=== PATIENT | male | born 1945 | race Hispanic/Latino ===

== ENCOUNTER 2017-04-15 08:38 | Emergency (ER) | payer MEDICARE ==
[~2017-04-15 08:38] MED LIST: AMIO200T44 PO; AMOX-426 PO; DILT180C63 PO; LISI-613 PO; METO50 PO
[2017-04-15] MEDS ORDERED: SODIUM CHLORIDE 0.9% 50 ML IV ONE (08:56)
[2017-04-15] MEDS ORDERED: CEFTRIAXONE SODIUM 1 GM ONE (08:56)
[2017-04-15] MEDS ORDERED: DiphenhydrAMINE HCL 50 MG/ML VIAL ONE (08:56)
[2017-04-15] MEDS ORDERED: METHYLPREDNISOLONE SOD SUCC 125MG/2ML VIAL ONE (08:56)
[2017-04-15] MEDS ORDERED: FAMOTIDINE/PF 20 MG/2 ML VIAL IV ONE (08:57)
[2017-04-15 09:03] LABS: BASOPHILS % (AUTO) 0.4 % (0.0-5.0); EOSINOPHILS % (AUTO) 2.6 % (0.0-8.0); HEMATOCRIT 43.1 % (42-54); LYMPHOCYTES % (AUTO) 16.3 % (21.0-51.0); MEAN CORPUSCULAR HEMOGLOBIN 22.9 pg (27.0-33.0); MEAN CORPUSCULAR HGB CONC 32.4 g/dL (32.0-36.0); MEAN CORPUSCULAR VOLUME 70.5 fL (79-99); MONOCYTES % (AUTO) 10.1 % (3.0-13.0); NEUTROPHILS % (AUTO) 70.6 % (40.0-77.0); NUCLEATED RED BLOOD CELLS 0.1 % (0.0-0.19); PLATELET COUNT (AUTO) 164 K/uL (130-400); RED BLOOD CELL COUNT(AUTO) 6.11 MIL/uL (4.50-6.20); RED CELL DISTRIBUTION WIDTH 15.1 % (11.0-15.5); WHITE BLOOD COUNT (AUTO) 7.2 K/uL (4.8-10.8)
[2017-04-15 09:10] LABS: CREATININE 1.2 mg/dL (0.5-1.5); POTASSIUM 4.1 mmol/L (3.5-5.1)
[2017-04-15 09:15] LABS: ALBUMIN 3.4 g/dL (3.5-5.0); BILIRUBIN,TOTAL 0.9 mg/dL (0.2-1.0); TOTAL PROTEIN, SERUM 6.8 g/dL (6.0-8.3)
== END 2017-04-15 11:16 | disposition home or self-care (01) ==
LOC: EDH 08:38
DX: T78.3XXA Angioneurotic edema, initial encounter (principal); J02.9 Acute pharyngitis, unspecified; I10 Essential (primary) hypertension; E78.5 Hyperlipidemia, unspecified; I25.10 Atherosclerotic heart disease of native coronary artery without angina pectoris
CPT/HCPCS: 36415; 80053; 85025; 96374; 96375; 99284; J0696; J1200; J2930; J3490

== ENCOUNTER 2018-04-15 12:35 | Emergency (ER) | payer MEDICARE ==
[2018-04-15 12:57] LABS: APPEARANCE,URINE CLEAR (CLEAR); BILIRUBIN,URINE NEGATIVE (NEGATIVE); COLOR,URINE YELLOW (YELLOW); GLUCOSE, URINE (UA) NEGATIVE (NEGATIVE); KETONES,URINE 5 mg/dL (NEGATIVE); LEUKOCYTE ESTERASE ,URINE NEGATIVE (NEGATIVE); NITRATE,URINE NEGATIVE (NEGATIVE); OCCULT BLOOD,URINE LARGE (NEGATIVE); PROTEIN,URINE NEGATIVE (NEGATIVE)
[2018-04-15 12:58] LABS: BACTERIA,URINE Rare /HPF (None Seen); RBC,URINE 0-1 /HPF (0-1); SQUAMOUS EPITHELIAL CELL,UR Rare /HPF (0-2)
== END 2018-04-15 15:05 | disposition home or self-care (01) ==
LOC: EDH 12:35
DX: N45.1 Epididymitis (principal); N43.3 Hydrocele, unspecified; I10 Essential (primary) hypertension; E78.5 Hyperlipidemia, unspecified; I25.10 Atherosclerotic heart disease of native coronary artery without angina pectoris; I48.91 Unspecified atrial fibrillation; Z88.8 Allergy status to other drugs, medicaments and biological substances; Z79.82 Long term (current) use of aspirin
CPT/HCPCS: 76870; 81001

== ENCOUNTER → 2019-05-19 | Outpatient (CLI) | payer OTHER | END | disposition home or self-care (01) | LOC: RAH 13:13 | PROVIDERS: ATTEND Internal Medicine Cardiovascular Disease | DX: Z13.6 Encounter for screening for cardiovascular disorders (principal); I71.2 Thoracic aortic aneurysm, without rupture | CPT/HCPCS: 75571 ==

== ENCOUNTER → 2019-10-20 | Outpatient (CLI) | payer MEDICARE ==
[~2019-10-20] MED LIST changes: +AEC81 PO; +ALBUTEROL SULFATE 0.083% 2.5 MG/3 ML INH IH ONE; +AMIO200T5 PO; +HYDR12.54 PO; +LEVO25TA54 PO; +METO25TA6 PO; +NITR0.4T50 SL; +PRAV10TA39 PO; +TERA10CA4 PO
== END | disposition home or self-care (01) ==
LOC: RESP 08:44
PROVIDERS: ATTEND Internal Medicine Cardiovascular Disease
DX: R06.00 Dyspnea, unspecified (principal); D64.9 Anemia, unspecified
CPT/HCPCS: 94060; 94727; 94729

== ENCOUNTER → 2019-10-21 | Outpatient (CLI) | payer MEDICARE ==
[~2019-10-21] MED LIST changes: -AEC81 PO; -ALBUTEROL SULFATE 0.083% 2.5 MG/3 ML INH IH ONE; -AMIO200T5 PO; -HYDR12.54 PO; -LEVO25TA54 PO; -METO25TA6 PO; -NITR0.4T50 SL; -PRAV10TA39 PO; -TERA10CA4 PO
== END | disposition home or self-care (01) ==
LOC: SHCH 12:48
PROVIDERS: ATTEND Internal Medicine Cardiovascular Disease
DX: I10 Essential (primary) hypertension (principal)
CPT/HCPCS: 93306; 93356

== ENCOUNTER → 2019-10-29 | Outpatient (CLI) | payer MEDICARE | END | disposition home or self-care (01) | LOC: RAH 11:41 | PROVIDERS: ATTEND Internal Medicine Cardiovascular Disease | DX: J84.10 Pulmonary fibrosis, unspecified (principal); R94.2 Abnormal results of pulmonary function studies; M47.814 Spondylosis without myelopathy or radiculopathy, thoracic region | CPT/HCPCS: 71250 ==

== ENCOUNTER 2019-11-12 18:28 | Observation (INO) | payer MEDICARE ==
[~2019-11-12] VITALS: Ht 165.1 cm; Wt 79.8 kg
[2019-11-12] MEDS ORDERED: ASPIRIN 325 MG TABLET ONE (19:06)
[2019-11-12 19:10] LABS: BASOPHILS % (AUTO) 0.5 % (0.0-5.0); EOSINOPHILS % (AUTO) 2.3 % (0.0-8.0); HEMATOCRIT 41.3 % (42-54); MEAN CORPUSCULAR HEMOGLOBIN 22.8 pg (27.0-33.0); MEAN CORPUSCULAR VOLUME 71.3 fL (79-99); MONOCYTES % (AUTO) 11.9 % (3.0-13.0); NEUTROPHILS % (AUTO) 61.5 % (40.0-77.0); PLATELET COUNT (AUTO) 162 K/uL (130-400); RED BLOOD CELL COUNT(AUTO) 5.79 MIL/uL (4.50-6.20); RED CELL DISTRIBUTION WIDTH 17.3 % (11.0-15.5)
[2019-11-12 19:12] LABS: CREATININE 1.4 mg/dL (0.5-1.5); POTASSIUM 4.2 mmol/L (3.5-5.1)
[2019-11-12 19:17] LABS: ALBUMIN 3.3 g/dL (3.5-5.0); BILIRUBIN,TOTAL 0.7 mg/dL (0.2-1.0); TOTAL PROTEIN, SERUM 6.8 g/dL (6.0-8.3)
[2019-11-12 19:36] LABS: INR 1.07 (0.85-1.15); PARTIAL THROMBOPLASTIN TIME 24.1 SEC (26.3-35.5); PROTHROMBIN TIME 11.5 SEC (9.6-11.6)
[2019-11-12] MEDS ORDERED: ACETAMINOPHEN 325 MG TAB PO PRN ×2 (20:15)
[2019-11-12] MEDS ORDERED: ONDANSETRON HCL 4 MG/2 ML VIAL IV PRN (20:15)
[2019-11-12] MEDS ORDERED: NITROGLYCERIN 0.4 MG SL TAB SL PRN (20:15)
[2019-11-12] MEDS ORDERED: METOPROLOL TARTRATE 50 MG TAB PO SCH (21:00)
[2019-11-12] MEDS: LISINOPRIL 20 MG TABLET PO SCH (21:00)
[2019-11-12] MEDS ORDERED: LISINOPRIL 5 MG TABLET ONE (21:12)
[2019-11-12 22:45] VITALS: BP 120/77
--- NOTE | 2019-11-12 22:45 | NUR ---
Admission Assessment Received pt from ED per stretcher, awake alert, pleasantly conversant, noted to be [place]. Routine admission assessment done, plan of care discuss, stated that he has been having chest pain some time ago & just prior to admission stated has another chest pain, took NTG SL but his blood pressure drop to 74 as claimed reason his had called EMS. Pt currently denies any chest pain. Pt stated t hat he is supposedly to come on Friday for some heart procedure, stating Dr. Santana will place a stent on him, I inform him that he is pending to be seen by Dr. Santana at this time. Pt stated he has a provider with [facility], serving him & his . Pt claimed that his right knee became stiff after 2 knee surgeries in the past but still able to manage to ambulate independently. PT claimed current with flu shot, declined pneumonia vaccination.
[2019-11-12] MEDS: HEPARIN SODIUM 5000UNIT/ML 1ML VIAL SQ SCH (23:51)
[2019-11-13] VITALS: BP 130/74
[2019-11-13 02:21] LABS: HEMATOCRIT 39.5 % (42-54); MEAN CORPUSCULAR HGB CONC 32.4 g/dL (32.0-36.0); RED BLOOD CELL COUNT(AUTO) 5.56 MIL/uL (4.50-6.20); RED CELL DISTRIBUTION WIDTH 16.8 % (11.0-15.5); WHITE BLOOD COUNT (AUTO) 6.4 K/uL (4.8-10.8)
[2019-11-13 03:15] LABS: CREATININE 1.3 mg/dL (0.5-1.5); POTASSIUM 4.5 mmol/L (3.5-5.1)
[2019-11-13 04:00] VITALS: BP 147/75
[2019-11-13] MEDS ORDERED: AMIO200T6 PO (04:09)
[2019-11-13] MEDS ORDERED: AEC81 PO (04:09)
[2019-11-13] MEDS ORDERED: METO25TA6 PO (04:09)
[2019-11-13] MEDS ORDERED: PRAV10TA39 PO (04:09)
[2019-11-13] MEDS ORDERED: LEVO25TA54 PO (04:09)
[2019-11-13] MEDS ORDERED: TERA10CA4 PO (04:09)
[2019-11-13 08:00] VITALS: BP 175/81
[2019-11-13] MEDS ORDERED: ASPIRIN 325 MG TABLET PO SCH (09:00)
[2019-11-13] MEDS ORDERED: AMIODARONE HCL 200 MG TABLET PO SCH ×2 (09:00→10:09)
[2019-11-13] MEDS ORDERED: DILTIAZEM HCL 180 MG CAP.SR.24H PO SCH (09:00)
[2019-11-13] MEDS: LISINOPRIL 20 MG TABLET PO SCH (09:00)
--- NOTE | 2019-11-13 09:33 | NUR ---
i spoke to dr reed on the phone and informed of consult and recomendations if pt should be d/c home to return friday. he stated he would see the patient then make his recomendations
[2019-11-13] MEDS: HEPARIN SODIUM 5000UNIT/ML 1ML VIAL SQ SCH ×2 (09:37→14:00)
[2019-11-13] MEDS ORDERED: ASPIRIN 81 MG EC TAB PO SCH (10:10)
[2019-11-13] MEDS ORDERED: TERAZOSIN HCL 5 MG CAPSULE PO SCH (10:11)
[2019-11-13 11:00] VITALS: BP 143/76
--- NOTE | 2019-11-13 14:22 | NUR ---
INITIAL SW spoke to patient's spouse, Suzanne Mccurdy. Patient lives with spouse. No home health but had PHC with [facility] X 18 hours a week. DME: julio SAMU[facility] walker. Patient needs help with ADL's and drives only in town. PCP is Dr. Cherie Angel. Pharmacy is [facility] in [place]. No safety concerns voiced on patient returning home. DCP is home. Addendum: 11/13/19 at 1424 by SUZANNE GARCIA SS Amended: Links added.
[2019-11-13 16:00] VITALS: BP 121/54
--- NOTE | 2019-11-13 18:30 | NUR ---
DISCHARGE PATIENT GIVEN DISCHARGE INSTRUCTIONS VIA TEACH BACK. RIGHT HAND 18G AND 20G TO LEFT ARM DISCONTINUED, TIPS INTACT. TELE PACK REMOVED AND TAKEN TO TELEMETRY. RECOMMENDATION FROM DR. MARIE FOR PATIENT TO STOP TAKING TERAZOSIN AND AMIODARONE UNTIL DR. GAGE RE-EVALUATES HOME MEDICATIONS DUE TO BRADYCARDIA. PATIENT TO KEEP APPOINTMENT WITH DR. GAGE FOR LEFT HEART CATH ON FRIDAY. PATIENT STABLE AT THIS TIME. SPOKE TO PATIENT'S SPOUSE (ELIZABETH), VOICED UNDERSTANDING. PATIENT WHEELED TO [facility] FOR DISCHARGE BY SEVERINO DURANT.
[2019-11-13] MEDS ORDERED: METOPROLOL TARTRATE 25 MG TAB PO SCH (21:00)
[2019-11-13] MEDS ORDERED: SIMVASTATIN 10 MG TABLET PO SCH (21:00)
[2019-11-14] MEDS ORDERED: LEVOTHYROXINE 25 MCG TABLET PO SCH (07:30)
[2019-11-15] MEDS ORDERED: LEVO25TA54 PO (12:39)
[2019-11-15] MEDS ORDERED: METO25TA6 PO (12:39)
[2019-11-15] MEDS ORDERED: HYDR12.54 PO (12:39)
[2019-11-15] MEDS ORDERED: NITR0.4T50 SL (12:39)
== END 2019-11-13 19:05 | disposition home or self-care (01) ==
LOC: EDH 18:28 → EDHIP 20:06 → 3AH 22:31
PROVIDERS: ADMIT Internal Medicine; ATTEND Internal Medicine
DX: R07.89 Other chest pain (principal); I25.9 Chronic ischemic heart disease, unspecified; I10 Essential (primary) hypertension; E78.5 Hyperlipidemia, unspecified; I44.0 Atrioventricular block, first degree; Z86.73 Personal history of transient ischemic attack (TIA), and cerebral infarction without residual deficits
CPT/HCPCS: 36415 ×3; 70450; 70551; 71045; 80048 ×2; 80053; 80061; 81003; 82550; 82948; 84484 ×4; 85025 ×2; 85027; 85610 ×2; 85730 ×2; 93005 ×2; 96372 ×2; 99291; G0378 ×5; J1644 ×2

== ENCOUNTER → 2019-11-15 | Outpatient (CLI) | payer MEDICARE ==
[~2019-11-15] MED LIST changes: +AEC81 PO; -AMIO200T44 PO; -AMOX-426 PO; -DILT180C63 PO; +HYDR12.54 PO; +LEVO25TA54 PO; -LISI-613 PO; +METO25TA6 PO; -METO50 PO; +NITR0.4T50 SL; +PRAV10TA39 PO
== END | disposition home or self-care (01) ==
LOC: RAH 09:38
PROVIDERS: ATTEND Internal Medicine Cardiovascular Disease
DX: N28.1 Cyst of kidney, acquired (principal); N20.0 Calculus of kidney
CPT/HCPCS: 76700

== ENCOUNTER 2019-11-16 07:57 | Day surgery (SDC) | payer MEDICARE ==
[2019-11-12 11:56] VITALS: BP 128/68
[2019-11-12 13:43] LABS: APPEARANCE,URINE Clear (CLEAR); BILIRUBIN,URINE Negative (NEGATIVE); COLOR,URINE Yellow (YELLOW); GLUCOSE, URINE (UA) Negative (NEGATIVE); KETONES,URINE Negative (NEGATIVE); LEUKOCYTE ESTERASE ,URINE Negative (NEGATIVE); NITRATE,URINE Negative (NEGATIVE); OCCULT BLOOD,URINE Negative (NEGATIVE); PROTEIN,URINE Negative (NEGATIVE)
[2019-11-12 13:43] LABS: BASOPHILS % (AUTO) 0.3 % (0.0-5.0); EOSINOPHILS % (AUTO) 0.9 % (0.0-8.0); HEMATOCRIT 41.2 % (42-54); LYMPHOCYTES % (AUTO) 21.5 % (21.0-51.0); MEAN CORPUSCULAR HEMOGLOBIN 22.9 pg (27.0-33.0); MEAN CORPUSCULAR VOLUME 71.5 fL (79-99); MONOCYTES % (AUTO) 10.6 % (3.0-13.0); NEUTROPHILS % (AUTO) 65.7 % (40.0-77.0); PLATELET COUNT (AUTO) 175 K/uL (130-400); RED BLOOD CELL COUNT(AUTO) 5.76 MIL/uL (4.50-6.20); RED CELL DISTRIBUTION WIDTH 17.2 % (11.0-15.5); WHITE BLOOD COUNT (AUTO) 5.9 K/uL (4.8-10.8)
[2019-11-12 14:02] LABS: INR 1.06 (0.85-1.15); PARTIAL THROMBOPLASTIN TIME 26.7 SEC (26.3-35.5); PROTHROMBIN TIME 11.4 SEC (9.6-11.6)
[2019-11-12 14:44] LABS: CREATININE 1.1 mg/dL (0.5-1.5); POTASSIUM 4.1 mmol/L (3.5-5.1)
[~2019-11-16] VITALS: Ht 170.2 cm; Wt 79.0 kg
[2019-11-16] VITALS (12 sets, daily range): BP systolic 119–150; BP diastolic 6–75
[2019-11-16] MEDS ORDERED: HEPARIN SODIUM 1000UNIT/ML 10ML VIAL ONE (11:09)
[2019-11-16] MEDS ORDERED: SODIUM BICARB 50MEQ 50ML VIAL ONE (11:09)
[2019-11-16] MEDS ORDERED: MIDAZOLAM HCL 1 MG/ML 2ML VIAL ONE (11:10)
[2019-11-16] MEDS ORDERED: MEPERIDINE-PF 25 MG/ML SYG ONE (11:10)
[2019-11-16] MEDS ORDERED: IOHEXOL 350 MG/ML 100ML INFUS..BTL IV ONE (11:10)
[2019-11-16] MEDS ORDERED: IOHEXOL-350 50ML VIAL IV ONE (11:10)
[2019-11-16] MEDS ORDERED: NITROGLYCERIN 2 MG/VIAL VIAL IV ONE (11:10)
[2019-11-16] MEDS ORDERED: LIDOCAINE HCL 2% 20ML ONE (11:12)
[2019-11-16] MEDS ORDERED: NICARDIPINE HCL 25 MG/10 ML ML IV ONE (11:22)
[2019-11-16] MEDS ORDERED: SODIUM CHLORIDE 0.9% 1000ML 1,000 ML IV SCH (12:31)
[2019-11-16] MEDS ORDERED: ACETAMINOPHEN-CODEINE 300/30MG TAB PO PRN ×2 (12:45)
--- NOTE | 2019-11-16 13:31 | NUR ---
urinary elimination: voided 150cc clear yellow urine per urinal
--- NOTE | 2019-11-16 15:00 | NUR ---
RECEIVED REPORT FROM CLARITZA DSOUZA. PT RESTING COMFORTABLY IN ROOM, IN NO SIGNS OF DISTRESS. DENIES ANY PAIN.
--- NOTE | 2019-11-16 16:35 | NUR ---
PT DISCHARGED HOME, TOLERATING FLUIDS/SOLIDS WELL, AMBULATING AT BASELINE, VOIDING WELL. PT DENIES ANY PAIN, NAUSEA OR DIZZINESS. RIGHT RADIAL CATH SITE DRESSING REMAINS CLEAN, DRY, AND INTACT, SITE SOFT, NON-TENDER. PT DENIES ANY FURTHER QUESTIONS AT THIS TIME. PRESCRIPTION SENT HOME WITH PT.
== END 2019-11-16 16:35 | disposition home or self-care (01) ==
LOC: DAH 07:57
PROVIDERS: ATTEND Internal Medicine Cardiovascular Disease
DX: I25.10 Atherosclerotic heart disease of native coronary artery without angina pectoris (principal); I48.91 Unspecified atrial fibrillation; I10 Essential (primary) hypertension; Z95.5 Presence of coronary angioplasty implant and graft; E86.0 Dehydration; Z88.8 Allergy status to other drugs, medicaments and biological substances; Z79.82 Long term (current) use of aspirin; Z79.899 Other long term (current) drug therapy
CPT/HCPCS: 93458; 96360; 96361; A4215; A4216; A4221; A4222; A4223 ×3; A4606; A4663; C1769; C1894; J1644; J2175; J2250; J3490 ×4; Q9965; Q9967 ×2; 36415; 71045; 80048; 81003; 85025; 85610; 85730; 93005; 99156; 99157

== ENCOUNTER → 2020-12-18 | Outpatient (CLI) | payer MEDICARE ==
[~2020-12-18] MED LIST changes: +IOHEXOL 350 MG/ML 100ML INFUS..BTL IV ONE
== END | disposition home or self-care (01) ==
LOC: RAH 08:21
PROVIDERS: ATTEND Internal Medicine Cardiovascular Disease
DX: I71.2 Thoracic aortic aneurysm, without rupture (principal); N20.0 Calculus of kidney; I71.01 Dissection of thoracic aorta; K57.30 Diverticulosis of large intestine without perforation or abscess without bleeding; Z95.820 Peripheral vascular angioplasty status with implants and grafts
CPT/HCPCS: 71275; 74174; Q9967

== ENCOUNTER → 2021-07-17 | Outpatient (CLI) | payer MEDICARE ==
[~2021-07-17] MED LIST changes: -IOHEXOL 350 MG/ML 100ML INFUS..BTL IV ONE
[2021-07-17 12:26] LABS: BASOPHILS % (AUTO) 0.4 % (0.0-5.0); EOSINOPHILS % (AUTO) 3.1 % (0.0-8.0); LYMPHOCYTES % (AUTO) 27.5 % (21.0-51.0); MEAN CORPUSCULAR HEMOGLOBIN 22.3 pg (27.0-33.0); MEAN CORPUSCULAR HGB CONC 30.4 g/dL (32.0-36.0); MEAN CORPUSCULAR VOLUME 73.2 fL (79-99); MONOCYTES % (AUTO) 10.6 % (3.0-13.0); NEUTROPHILS % (AUTO) 57.7 % (40.0-77.0); PLATELET COUNT (AUTO) 139 K/uL (130-400); RED BLOOD CELL COUNT(AUTO) 6.15 MIL/uL (4.50-6.20); RED CELL DISTRIBUTION WIDTH 17.1 % (11.0-15.5); WHITE BLOOD COUNT (AUTO) 7.4 K/uL (4.8-10.8)
[2021-07-17 12:44] LABS: BILIRUBIN,TOTAL 0.5 mg/dL (0.2-1.0); CREATININE 0.9 mg/dL (0.5-1.5); POTASSIUM 4.1 mmol/L (3.5-5.1); TOTAL PROTEIN, SERUM 7.2 g/dL (6.0-8.3)
[2021-07-17 12:59] LABS: B-TYPE NATRIURETIC PEPTIDE 44 pg/mL (0-100)
== END | disposition home or self-care (01) ==
LOC: LAB 09:00
PROVIDERS: ATTEND Physician Assistant
DX: I10 Essential (primary) hypertension (principal)
CPT/HCPCS: 36415; 80053; 83880; 85025

== ENCOUNTER → 2023-06-18 | Outpatient (CLI) | payer OTHER, MEDICARE ==
[2023-06-18 12:19] LABS: CREATININE 0.8 mg/dL (0.5-1.3); POTASSIUM 4.3 mmol/L (3.5-5.1)
== END | disposition home or self-care (01) ==
LOC: LAB 09:44
PROVIDERS: ATTEND Internal Medicine Cardiovascular Disease
DX: I10 Essential (primary) hypertension (principal)
CPT/HCPCS: 36415; 80048

== ENCOUNTER → 2023-07-16 | Outpatient (CLI) | payer OTHER, MEDICARE ==
[~2023-07-16] MED LIST changes: +IOHEXOL 350 MG/ML 100ML INFUS..BTL IV ONE
== END | disposition home or self-care (01) ==
LOC: RAH 08:03
PROVIDERS: ATTEND Internal Medicine Cardiovascular Disease
DX: I71.21 Aneurysm of the ascending aorta, without rupture (principal); I73.9 Peripheral vascular disease, unspecified; I71.22 Aneurysm of the aortic arch, without rupture; K80.20 Calculus of gallbladder without cholecystitis without obstruction; I51.7 Cardiomegaly
CPT/HCPCS: 71275; Q9967

== ENCOUNTER → 2023-07-25 | Outpatient (CLI) | payer OTHER, MEDICARE ==
[~2023-07-25] MED LIST changes: -IOHEXOL 350 MG/ML 100ML INFUS..BTL IV ONE
[2023-07-25 15:03] LABS: CREATININE 0.9 mg/dL (0.5-1.3)
== END | disposition home or self-care (01) ==
LOC: LAB 11:09
PROVIDERS: ATTEND Internal Medicine Cardiovascular Disease
DX: I70.8 Atherosclerosis of other arteries (principal)
CPT/HCPCS: 36415; 80048

== ENCOUNTER → 2023-08-04 | Outpatient (CLI) | payer OTHER, MEDICARE ==
[~2023-08-04] MED LIST changes: +IOHEXOL 350 MG/ML 100ML INFUS..BTL IV ONE
== END | disposition home or self-care (01) ==
LOC: RAH 07:57
PROVIDERS: ATTEND Internal Medicine Cardiovascular Disease
DX: I70.8 Atherosclerosis of other arteries (principal); K80.20 Calculus of gallbladder without cholecystitis without obstruction; N20.0 Calculus of kidney; Z95.828 Presence of other vascular implants and grafts
CPT/HCPCS: 74175; Q9967